=== PATIENT | male | born 1975 | race Caucasian/White ===

== ENCOUNTER 2017-10-03 11:40 | Inpatient (IN) | payer OTHER ==
[~2017-10-03] VITALS: Ht 188 cm; Wt 107.0 kg
[~2017-10-03 11:40] MED LIST: AUGMENTIN PO; AUGMENTIN875 MG PO; CELEXA40 MG PO; CITALOPRAM HBR20 MG PO; CITALOPRAM HBR40 MG PO; Glucophage PO; HYDROCHLOROTHIA25 MG PO; JANUVIA100 MG PO; LANTUS 3 M100 UNITS1 SC; LOTREL 10/41 CAPSULE PO; LOTREL 5/201 CAPSULE PO; METFORMIN HCL500 MG PO; OMEPRAZOLE20 M2 PO; OMEPRAZOLE40 M1 PO; Vicodin,Norco 5/325
[2017-10-03 13:27] LABS: BASOPHIL (%) 0.2 % (0-1); EOSINOPHIL (%) 0.2 % (0-5); HEMATOCRIT 37.1 % (38.0-50.0); HEMOGLOBIN 12.9 G/DL (12.5-16.6); IMMATURE GRANULOCYTE (%) 0.6 % (0.0-0.7); LYMPHOCYTE (%) 10.5 % (15-42); LYMPHOCYTE COUNT 1.7 K/uL (1.0-2.8); MCH 29.9 PG (29.0-34.0); MCHC 34.8 G/DL (30.0-36.0); MCV 86.1 FL (86-99); MONOCYTE (%) 9.5 % (3-12); MONOCYTE COUNT 1.5 K/uL (0-0.8); NEUTROPHIL COUNT 12.8 K/uL (1.8-6.4); PLATELET COUNT 157 K/uL (156-360); RBC DIS.WIDTH-CV 13.3 % (11.8-14.6); RBC DIS.WIDTH-SD 41.3 % (39-53); RED BLOOD COUNT 4.31 M/uL (4.00-5.50); WHITE BLOOD COUNT 16.2 K/uL (4.1-10.2)
[2017-10-03 13:35] LABS: CHLORIDE 93 mEq/L (99-109); POTASSIUM 4.5 mEq/L (3.7-5.4); SODIUM 129 mEq/L (136-147)
[2017-10-03 13:41] LABS: CREATININE 1.4 mg/dL (0.6-1.3); GFR ESTIMATE (CALCULATED) > 59 mL/min/ (58.99-99999)
[2017-10-03 13:42] LABS: GLUCOSE 506 mg/dL (70-99); UREA NITROGEN (BUN) 30 mg/dL (9-23)
[2017-10-03 13:59] LABS: ERTH.SED.RATE 76 MM/HR (0-15)
[2017-10-03 14:02] LABS: C-REACTIVE PROTEIN 265.7 MG/L (0-10)
[2017-10-03] MEDS ORDERED: LIPITOR20 MG PO (15:46)
[2017-10-03] MEDS ORDERED: CYMBALTA30 MG PO (15:46)
[2017-10-03] MEDS ORDERED: ALDACTAZIDE 251 EACH PO (15:46)
[2017-10-03 19:42] VITALS: BP 137/84
[2017-10-03 23:52] VITALS: BP 114/56
[2017-10-04 07:13] VITALS: BP 126/77
[2017-10-04 07:22] LABS: CHLORIDE 103 MEQ/L (99-109); HEMATOCRIT 29.1 % (38.0-50.0); HEMOGLOBIN 9.8 G/DL (12.5-16.6); MCH 29.3 PG (29.0-34.0); MCHC 33.7 G/DL (30.0-36.0); MCV 87.1 FL (86-99); POTASSIUM 4.7 MEQ/L (3.7-5.4); RBC DIS.WIDTH-SD 41.1 % (39-53); RED BLOOD COUNT 3.34 M/uL (4.00-5.50); UREA NITROGEN (BUN) 16 mg/dL (9-23); WHITE BLOOD COUNT 7.8 K/uL (4.1-10.2)
[2017-10-04 07:31] LABS: CREATININE 0.8 MG/DL (0.6-1.3); GFR ESTIMATE (CALCULATED) > 59 mL/min/ (58.99-99999); GLUCOSE 248 mg/dL (70-99); SODIUM 137 MEQ/L (136-147)
[2017-10-04 07:35] LABS: PLAT.SUFFICIENCY DECREASED
[2017-10-04 07:37] LABS: PLATELET COUNT 97 K/uL (156-360)
[2017-10-04 08:24] LABS: ALBUMIN 2.7 G/DL (3.2-4.8); ALKALINE PHOSPHATASE 60 IU/L (3-129); ALT (GPT) 23 IU/L (3-49); AST (GOT) 15 IU/L (2-34); DIRECT BILIRUBIN 0.3 mg/dL (0.0-0.3); TOTAL BILIRUBIN 0.9 MG/DL (0.0-1.0); TOTAL PROTEIN 5.5 G/DL (6.4-8.3)
[2017-10-04 08:30] VITALS: BP 130/86
[2017-10-04 10:02] LABS: HEMOGLOBIN A1c (GLYCOHEMOGLOB) 12.2 % (Below 5.7)
[2017-10-04 15:23] VITALS: BP 109/61
[2017-10-04 23:24] VITALS: BP 133/78
[2017-10-05 07:47] VITALS: BP 136/86
[2017-10-05 16:05] VITALS: BP 141/80
[2017-10-05 23:19] VITALS: BP 121/61
[2017-10-06 06:15] LABS: HEMATOCRIT 29.3 % (38.0-50.0); HEMOGLOBIN 9.8 G/DL (12.5-16.6); MCH 28.7 PG (29.0-34.0); MCHC 33.4 G/DL (30.0-36.0); MCV 85.9 FL (86-99); RBC DIS.WIDTH-CV 12.7 % (11.8-14.6); RBC DIS.WIDTH-SD 39.3 % (39-53); RED BLOOD COUNT 3.41 M/uL (4.00-5.50); WHITE BLOOD COUNT 5.7 K/uL (4.1-10.2)
[2017-10-06 06:19] LABS: PLATELET COUNT 131 K/uL (156-360)
[2017-10-06 07:01] LABS: CHLORIDE 103 MEQ/L (99-109); CREATININE 0.6 MG/DL (0.6-1.3); GFR ESTIMATE (CALCULATED) > 59 mL/min/ (58.99-99999); GLUCOSE 192 mg/dL (70-99); POTASSIUM 3.8 MEQ/L (3.7-5.4); SODIUM 137 MEQ/L (136-147); UREA NITROGEN (BUN) 6 mg/dL (9-23)
[2017-10-06 07:37] VITALS: BP 155/92
[2017-10-06 15:41] VITALS: BP 144/90
[2017-10-07 00:22] VITALS: BP 141/81; BP 157/67
[2017-10-07 06:08] LABS: HEMATOCRIT 30.1 % (38.0-50.0); MCH 28.8 PG (29.0-34.0); MCHC 33.2 G/DL (30.0-36.0); MCV 86.7 FL (86-99); PLATELET COUNT 151 K/uL (156-360); RBC DIS.WIDTH-CV 12.9 % (11.8-14.6); RBC DIS.WIDTH-SD 39.9 % (39-53); RED BLOOD COUNT 3.47 M/uL (4.00-5.50); WHITE BLOOD COUNT 6.1 K/uL (4.1-10.2)
[2017-10-07 06:36] LABS: CHLORIDE 103 MEQ/L (99-109); CREATININE 0.7 MG/DL (0.6-1.3); GFR ESTIMATE (CALCULATED) > 59 mL/min/ (58.99-99999); GLUCOSE 219 mg/dL (70-99); POTASSIUM 4.3 MEQ/L (3.7-5.4); SODIUM 140 MEQ/L (136-147); UREA NITROGEN (BUN) 5 mg/dL (9-23)
[2017-10-07 07:27] VITALS: BP 138/90
[2017-10-07 17:01] VITALS: BP 163/91
[2017-10-08] VITALS: BP 143/96
[2017-10-08 06:22] LABS: HEMATOCRIT 30.8 % (38.0-50.0); HEMOGLOBIN 10.2 G/DL (12.5-16.6); MCH 28.6 PG (29.0-34.0); MCHC 33.1 G/DL (30.0-36.0); MCV 86.3 FL (86-99); PLATELET COUNT 155 K/uL (156-360); RBC DIS.WIDTH-CV 12.7 % (11.8-14.6); RBC DIS.WIDTH-SD 39.2 % (39-53); RED BLOOD COUNT 3.57 M/uL (4.00-5.50); WHITE BLOOD COUNT 6.1 K/uL (4.1-10.2)
[2017-10-08 06:56] LABS: CHLORIDE 103 MEQ/L (99-109); CREATININE 0.7 MG/DL (0.6-1.3); GFR ESTIMATE (CALCULATED) > 59 mL/min/ (58.99-99999); GLUCOSE 229 mg/dL (70-99); POTASSIUM 4.1 MEQ/L (3.7-5.4); SODIUM 138 MEQ/L (136-147); UREA NITROGEN (BUN) 6 mg/dL (9-23)
[2017-10-08 07:30] VITALS: BP 140/102
[2017-10-08 07:37] LABS: ERTH.SED.RATE 80 MM/HR (0-15)
[2017-10-08 07:51] LABS: C-REACTIVE PROTEIN 68.5 MG/L (0-10)
[2017-10-08 11:10] VITALS: BP 160/92
[2017-10-08] MEDS ORDERED: AUGMENTIN875 MG PO (12:37)
[2017-10-08] MEDS ORDERED: ENDOCET 5-3251 EACH PO (12:37)
[2017-10-08] MEDS ORDERED: LEVEMIR FL100 UNIT/1 SC (12:37)
[2017-10-08] MEDS ORDERED: BACTRIM,SEPT1 TABLET PO (12:37)
[2017-10-08] MEDS ORDERED: PROBIOTIC1 EAC2 PO (12:38)
== END 2017-10-08 13:45 | disposition home or self-care (01) | DRG 256 ==
LOC: EME 11:40 → EDOF 16:44 → 5SOUTH 16:44 → ENRESERV 16:48 → 5SOUTH 19:17
PROVIDERS: Emergency Medicine; Family Medicine; Internal Medicine
DX: E11.52 Type 2 diabetes mellitus with diabetic peripheral angiopathy with gangrene (principal); E11.69 Type 2 diabetes mellitus with other specified complication; M86.9 Osteomyelitis, unspecified; E11.621 Type 2 diabetes mellitus with foot ulcer; L97.519 Non-pressure chronic ulcer of other part of right foot with unspecified severity; E11.628 Type 2 diabetes mellitus with other skin complications; L03.115 Cellulitis of right lower limb; E11.65 Type 2 diabetes mellitus with hyperglycemia; E87.1 Hypo-osmolality and hyponatremia; I10 Essential (primary) hypertension; K21.9 Gastro-esophageal reflux disease without esophagitis; E78.00 Pure hypercholesterolemia, unspecified; E66.9 Obesity, unspecified; Z68.30 Body mass index [BMI] 30.0-30.9, adult; F17.210 Nicotine dependence, cigarettes, uncomplicated; Z86.14 Personal history of Methicillin resistant Staphylococcus aureus infection; Z79.84 Long term (current) use of oral hypoglycemic drugs; Z83.3 Family history of diabetes mellitus
CPT/HCPCS: 71046; 73630; 73720; 80048; 80076; 80202; 82948; 83036; 83605; 85025; 85027; 85651; 86140; 87040; 87070; 87075; 87205; 87801; 88305; 88311; 93005; 93926; 99281; 99285; J0295; J1650; J1815; J1885; J2250; J2405; J2543; J3370; J7030; J7050; S0020

== ENCOUNTER 2018-01-14 11:02 | Day surgery (SDC) | payer OTHER ==
[~2018-01-14] VITALS: Ht 188 cm; Wt 97.1 kg
[~2018-01-14 11:02] MED LIST changes: +ALDACTAZIDE 251 EACH PO; +BACTRIM,SEPT1 TABLET PO; +CYMBALTA60 MG PO; +ENDOCET 5-3251 EACH PO; +LEVEMIR FL100 UNIT/1 SC; +LIPITOR20 MG PO; +PROBIOTIC1 EAC2 PO; +PROTONIX20 MG PO; +XULTOPHY 100 UNI3 ML SC; +ZESTRIL5 MG PO
[2018-01-14 11:33] LABS: HEMATOCRIT 35.5 % (38.0-50.0); HEMOGLOBIN 12.1 G/DL (12.5-16.6); MCH 29.2 PG (29.0-34.0); MCHC 34.1 G/DL (30.0-36.0); MCV 85.7 FL (86-99); PLATELET COUNT 197 K/uL (156-360); RBC DIS.WIDTH-SD 43.4 % (39-53); RED BLOOD COUNT 4.14 M/uL (4.00-5.50); WHITE BLOOD COUNT 10.2 K/uL (4.1-10.2)
[2018-01-14 11:44] LABS: CHLORIDE 107 mEq/L (99-109); POTASSIUM 4.5 mEq/L (3.7-5.4); SODIUM 141 mEq/L (136-147)
[2018-01-14 11:46] LABS: GLUCOSE 131 mg/dL (70-99)
[2018-01-14 11:50] LABS: CREATININE 1.2 mg/dL (0.6-1.3); GFR ESTIMATE (CALCULATED) > 59 mL/min/ (58.99-99999)
[2018-01-14 11:51] LABS: UREA NITROGEN (BUN) 31 mg/dL (9-23)
[2018-01-14 12:28] VITALS: BP 139/89
[2018-01-14] MEDS ORDERED: NORCO 7.5/321 TABLET PO (16:41)
[2018-01-14 17:45] VITALS: BP 133/78
== END 2018-01-14 18:45 | disposition home or self-care (01) ==
LOC: SDC 11:02
PROVIDERS: Surgery
PROC: 0QBN0ZZ Excision of Right Metatarsal, Open Approach (ICD-10-PCS; principal; 2018-01-14)
DX: E11.69 Type 2 diabetes mellitus with other specified complication (principal); E11.621 Type 2 diabetes mellitus with foot ulcer; L97.519 Non-pressure chronic ulcer of other part of right foot with unspecified severity; M86.171 Other acute osteomyelitis, right ankle and foot; B95.62 Methicillin resistant Staphylococcus aureus infection as the cause of diseases classified elsewhere; I10 Essential (primary) hypertension; R00.0 Tachycardia, unspecified; F17.200 Nicotine dependence, unspecified, uncomplicated; Z79.4 Long term (current) use of insulin
CPT/HCPCS: 80048; 82948; 85027; 87070; 87075; 87076; 87077; 87147; 87185; 87186; 87205; J0131; J1170; J2250; J2405; J3010; J3370

== ENCOUNTER → 2018-01-19 | Outpatient (CLI) | payer OTHER ==
[~2018-01-19] MED LIST changes: +NORCO 7.5/321 TABLET PO
== END | disposition home or self-care (01) ==
LOC: PICC 06:54
DX: M86.9 Osteomyelitis, unspecified (principal)
CPT/HCPCS: 76937